=== PATIENT | male | born 1980 ===

== ENCOUNTER 2024-10-12 15:43 | Emergency (ER) | payer OTHER ==
[~2024-10-12] VITALS: Ht 167.6 cm; Wt 72.7 kg
[2024-10-12 15:52] VITALS: TEMP 98.7
[2024-10-12] MEDS ORDERED: ACET-3385 PO (18:22)
[2024-10-12] MEDS ORDERED: IBUP-1492 PO (18:22)
[2024-10-12] MEDS ORDERED: LIDO700A15 TP (18:22)
[2024-10-12] MEDS: ACETAMINOPHEN 500 MG TABLET PO ONE (18:49)
[2024-10-12] MEDS: IBUPROFEN 600 MG TABLET PO ONE (18:49)
[2024-10-12] MEDS: LIDOCAINE 5% TRANSDERMAL PATCH TD ONE (18:49)
[2024-10-12 19:00] VITALS: BP 139/77; PULSE 80; RESP 20; O2SAT 100
== END 2024-10-12 19:31 | disposition home or self-care (01) ==
LOC: EMS 15:43
DX: S16.1XXA Strain of muscle, fascia and tendon at neck level, initial encounter (principal); S39.012A Strain of muscle, fascia and tendon of lower back, initial encounter; V43.52XA Car driver injured in collision with other type car in traffic accident, initial encounter; Y93.89 Activity, other specified; Y92.410 Unspecified street and highway as the place of occurrence of the external cause; Y99.8 Other external cause status
CPT/HCPCS: 99284; Z7502; Z7610